=== PATIENT | female | born 1995 | race Caucasian/White ===

== ENCOUNTER 2025-04-18 04:21 | Emergency (ER) | payer OTHER ==
[~2025-04-18] VITALS: Ht 162.6 cm; Wt 74.3 kg
[2025-04-18] MEDS ORDERED: LAMO100T3 PO (04:41)
[2025-04-18] MEDS ORDERED: METH27TA16 PO (04:43)
[2025-04-18] MEDS ORDERED: FLUO40CA PO (04:43)
[2025-04-18 04:45] LABS: BASO # 0.1 10^3/uL (0.0-0.2); BASO % 0.6 % (0.0-1.0); EOS # 0.1 10^3/uL (0.0-0.5); EOS % 1.0 % (0.0-3.0); LYMPH # 4.4 10^3/uL (1.5-5.0); LYMPH % 42.2 % (24.0-44.0); MONO # 0.7 10^3/uL (0.0-0.8); MONO % 6.6 % (2.0-8.0); NEUTROPHILS # 5.2 10^3/uL (1.5-8.5); NEUTROPHILS % 49.2 % (36.0-66.0); PLATELET COUNT, AUTOMATED 275 10^3/uL (150-450)
[2025-04-18 05:06] LABS: INR 0.91
[2025-04-18 05:15] LABS: ALT/SGPT 14 U/L (7.0-40); AST/SGOT 17 U/L (<34); CALCIUM LEVEL 8.8 MG/DL (8.5-10.1); CARBON DIOXIDE LEVEL 25 MMOL/L (20-31); CHLORIDE LEVEL 106 MMOL/L (98-107); CREATININE FOR GFR 0.58 MG/DL (0.55-1.30); GLOMERULAR FILTRATION RATE > 90.0 (>60); POTASSIUM SERUM 4.0 MMOL/L (3.5-5.1); SODIUM LEVEL 141 MMOL/L (136-145)
[2025-04-18] MEDS: RHOGAM 300MCG (1500IU) INJ IM ONE (08:10)
[2025-04-18 08:37] LABS: PLATELET COUNT, AUTOMATED 239 10^3/uL (150-450)
[2025-04-18] MEDS ORDERED: MISO200T83 PV (09:45)
[2025-04-18 11:00] VITALS: BP 96/46; TEMP 98.4; O2SAT 99
== END 2025-04-18 11:02 | disposition home or self-care (01) ==
LOC: M ED 04:21 → EDBD 04:21 → M ED 11:02
DX: O03.4 Incomplete spontaneous abortion without complication (principal); J45.909 Unspecified asthma, uncomplicated; F31.9 Bipolar disorder, unspecified; F90.9 Attention-deficit hyperactivity disorder, unspecified type; Z79.899 Other long term (current) drug therapy
CPT/HCPCS: 76801; 80047; 80053; 84702; 85025; 85027; 85610; 85730; 86850; 86900; 86901; 86920; 93976; 96372; 99284; J2790